=== PATIENT | male | born 2000 | race Two or more races ===

== ENCOUNTER 2022-11-26 17:52 | Emergency (ER) | payer SELFPAY ==
[2022-11-26 18:11] VITALS: BP 101/89; PULSE 99; RESP 17; TEMP 97.6; BMI 22.7
== END 2022-11-26 18:53 | disposition home or self-care (01) ==
LOC: JER 17:52
DX: Z11.52 Encounter for screening for COVID-19 (principal)
CPT/HCPCS: 0241U-QW; 99283-25

== ENCOUNTER 2023-07-18 19:00 | Emergency (ER) | payer SELFPAY ==
[2023-07-18 19:15] VITALS: BP 101/65; PULSE 78; RESP 18; TEMP 99; BMI 24.3
[2023-07-18] MEDS ORDERED: MAG HYDROX/AL HYDROX/SIMETH -MYLANTA- ORAL SUSPENSION PO ONE (20:52)
[2023-07-18] MEDS ORDERED: FAMOTIDINE 20 MG/50 ML IVPB 20 MG/50 ML MG IVPB ONE ×2 (20:52→21:58)
[2023-07-18] MEDS ORDERED: ACETAMINOPHEN 1000 MG/100 ML BAG IVPB ONE (20:52)
[2023-07-18] MEDS ORDERED: SUCRALFATE 1 GM TABLET (FP) PO ONE (20:53)
[2023-07-18] MEDS ORDERED: LACTATED RINGERS SOLUTION 1000 ML INFUS.BAG IV ONE (21:07)
[2023-07-18] MEDS ORDERED: SUCRALFATE 1 GM TABLET (FP) ONE (21:57)
[2023-07-18] MEDS ORDERED: MAG HYDROX/AL HYDROX/SIMETH 30 ML UNIT-DOSE CUP ONE (21:58)
[2023-07-18] MEDS ORDERED: ACETAMINOPHEN INJECTION 100 ML IVPB ONE (21:58)
[2023-07-18 22:21] LABS: BASO % 0.5 % (0-2.0); EOS % 0.3 % (0-4.5); HEMATOCRIT 46.3 % (35.4-49); HEMOGLOBIN 15.8 GM/dL (11.7-16.9); LYMPH % 23.6 % (8-40); MCHC 34.2 g/dl (32.0-35.9); MEAN CELL VOLUME 87.6 fl (80-96); MEAN PLT VOLUME 9.1 fl (7.5-11.1); MONO % 6.9 % (3.8-10.2); NEUT % 68.7 % (42.8-82.8); PLATELET COUNT 243 10^3/uL (134-434); RBC 5.28 M/mm3 (4.00-5.60); RDW 13.4 % (11.9-15.9); WHITE BLOOD COUNT 9.6 K/mm3 (4.0-10.0)
[2023-07-18 22:55] LABS: POTASSIUM 3.9 mmol/L (3.5-5.1)
[2023-07-18 22:57] LABS: ALBUMIN 4.5 g/dl (3.4-5.0); BLOOD UREA NITROGEN 8.5 mg/dL (7-18); CALCIUM 8.9 mg/dL (8.5-10.1)
[2023-07-18 23:00] LABS: CREATININE 0.9 mg/dL (0.55-1.3)
[2023-07-18 23:02] LABS: BILIRUBIN,TOTAL 1.1 mg/dL (0.2-1); TOT PROT 7.7 g/dl (6.4-8.2)
== END 2023-07-18 23:50 | disposition home or self-care (01) ==
LOC: JER 19:00
PROC: 3E033GC Introduction of Other Therapeutic Substance into Peripheral Vein, Percutaneous Approach (ICD-10-PCS; principal; 2023-07-18)
PROC: 3E033NZ Introduction of Analgesics, Hypnotics, Sedatives into Peripheral Vein, Percutaneous Approach (ICD-10-PCS; 2023-07-18)
DX: R63.0 Anorexia (principal); R10.10 Upper abdominal pain, unspecified
CPT/HCPCS: 36415; 76705-TC; 80053; 80307; 83690; 85025; 93005; 93010; 99285-25